=== PATIENT | female | born 1960 | race Caucasian/White ===

== ENCOUNTER 2019-04-22 10:00 | Day surgery (SDC) | payer OTHER, MEDICAID ==
[2019-04-22] MEDS: CEFAZOLIN 2 GM/50 ML (PMX) 50 ML IVPB (06:00)
[~2019-04-22 10:00] MED LIST: SOD CHLORIDE 0.9% 1,000 ML IV
[2019-04-22] MEDS ORDERED: EPHEDrine 25 MG/5 ML SYG IV ×2 (10:01→13:00)
[2019-04-22] MEDS ORDERED: BUPIVACAINE 0.25% (MPF) 30 ML INJ (12:43)
[2019-04-22] MEDS ORDERED: EPHEDrine 25 MG/5 ML SYG (12:54)
[2019-04-22] MEDS ORDERED: ROCURONIUM 50 MG INJ (12:54)
[2019-04-22] MEDS ORDERED: SUCCINYLCHOLINE CHLORIDE 100 MG/5 ML SYG IV (12:54)
[2019-04-22] MEDS ORDERED: LIDOCAINE 2% (SDV) 5 ML INJ (12:54)
[2019-04-22] MEDS ORDERED: MIDAZOLAM 1 MG/ML 2 ML INJ (12:54)
[2019-04-22] MEDS ORDERED: PROPOFOL 200 MG INJ (12:54)
[2019-04-22] MEDS ORDERED: ONDANSETRON 4 MG INJ (12:55)
[2019-04-22] MEDS ORDERED: DEXAMETHASONE 4 MG/ML 5 ML INJ (12:55)
[2019-04-22] MEDS ORDERED: ROPIVACAINE 0.5 % 30 ML VIAL (12:55)
[2019-04-22] MEDS ORDERED: HYDROmorphONE 1 MG/5 ML IV SYRINGE IV (13:00)
[2019-04-22] MEDS ORDERED: hydrALAzine 20 MG INJ IV (13:00)
[2019-04-22] MEDS ORDERED: DIPHENHYDRAMINE 50 MG INJ IV (13:00)
[2019-04-22] MEDS ORDERED: MIDAZOLAM 1 MG/ML 2 ML INJ IV (13:00)
[2019-04-22] MEDS ORDERED: MEPERIDINE 25 MG INJ IV (13:00)
[2019-04-22] MEDS ORDERED: LABETALOL HCL 20MG INJ IV (13:00)
[2019-04-22] MEDS ORDERED: OXYCODONE/ACETAMINOPHEN (5/325) TAB PO (13:00)
[2019-04-22] MEDS ORDERED: KETOROLAC 30 MG INJ (13:47)
[2019-04-22] MEDS ORDERED: SUGAMMADEX SODIUM 200 MG/2 ML VIAL IV (13:48)
[2019-04-22] MEDS: HYDROmorphONE 1 MG/5 ML IV SYRINGE IV ×2 (14:16→14:22)
[2019-04-22] MEDS: ONDANSETRON 4 MG INJ IV (14:16)
[2019-04-22] MEDS: FENTAnyl 50 MCG/ML VIAL IV ×4 (14:27→14:41)
[2019-04-22] MEDS: HYDROCODONE/APAP (5/325) TAB PO (14:46)
== END 2019-04-22 16:19 | disposition home or self-care (01) ==
LOC: SDS 10:00
DX: K80.10 Calculus of gallbladder with chronic cholecystitis without obstruction (principal); I10 Essential (primary) hypertension; E11.9 Type 2 diabetes mellitus without complications; K21.9 Gastro-esophageal reflux disease without esophagitis; E78.5 Hyperlipidemia, unspecified
CPT/HCPCS: 47562; 82962; 88304